=== PATIENT | female | born 1975 | race African-American/Black ===

== ENCOUNTER 2023-07-08 08:35 | Emergency (ER) | payer OTHER ==
[2023-07-08 08:57] VITALS: BP 101/64; PULSE 82; RESP 18; TEMP 98; BMI 21.2
[2023-07-08] MEDS ORDERED: ACETAMINOPHEN 1000 MG/100 ML BAG IVPB ONE (09:23)
[2023-07-08] MEDS ORDERED: ACETAMINOPHEN INJECTION 100 ML IVPB ONE (09:28)
[2023-07-08 09:52] LABS: BASO % 0.5 % (0-2.0); EOS % 0.7 % (0-4.5); HEMATOCRIT 34.8 % (32.4-45.2); HEMOGLOBIN 11.7 GM/dL (10.7-15.3); LYMPH % 38.2 % (8-40); MCH 32.1 pg (25.7-33.7); MCHC 33.6 g/dl (32.0-36.0); MEAN CELL VOLUME 95.7 fl (80-96); MEAN PLT VOLUME 9.8 fl (7.5-11.1); MONO % 11.2 % (3.8-10.2); NEUT % 49.4 % (42.8-82.8); PLATELET COUNT 194 10^3/uL (134-434); RBC 3.63 M/mm3 (3.60-5.2); RDW 13.1 % (11.6-15.6); WHITE BLOOD COUNT 4.2 K/mm3 (4.0-10.0)
[2023-07-08 10:15] LABS: POTASSIUM 4.3 mmol/L (3.5-5.1)
[2023-07-08 10:17] LABS: ALBUMIN 3.6 g/dl (3.4-5.0); BLOOD UREA NITROGEN 5.5 mg/dL (7-18); CALCIUM 8.7 mg/dL (8.5-10.1)
[2023-07-08 10:20] LABS: CREATININE 0.7 mg/dL (0.55-1.3)
[2023-07-08 10:23] LABS: BILIRUBIN,TOTAL 0.4 mg/dL (0.2-1); TOT PROT 7.7 g/dl (6.4-8.2)
[2023-07-08] MEDS ORDERED: KETOROLAC TROMETHAMINE 15 MG/ML VIAL IVPUSH ONE (11:57)
[2023-07-08] MEDS ORDERED: KETOROLAC TROMETHAMINE 15 MG/ML VIAL ONE (12:03)
== END 2023-07-08 14:55 | disposition home or self-care (01) ==
LOC: JER 08:35
PROC: 3E033NZ Introduction of Analgesics, Hypnotics, Sedatives into Peripheral Vein, Percutaneous Approach (ICD-10-PCS; principal; 2023-07-08)
PROC: 3E033NZ Introduction of Analgesics, Hypnotics, Sedatives into Peripheral Vein, Percutaneous Approach (ICD-10-PCS; 2023-07-08)
DX: R07.89 Other chest pain (principal)
CPT/HCPCS: 36415; 71046-TC-FY; 80053; 84484; 84703; 85025; 85379; 93005; 93010; 99285-25